=== PATIENT | male | born 1990 | race Caucasian/White ===

== ENCOUNTER 2016-12-09 15:31 | Emergency (ER) | payer BC ==
[~2016-12-09] VITALS: Ht 170.2 cm; Wt 65.0 kg
[2016-12-09 15:40] VITALS: TEMP 37.2; Ht 170.2 cm; Wt 65.0 kg
[2016-12-09] MEDS ORDERED: ESCI1TAB6 PO (16:01)
[2016-12-09] MEDS ORDERED: LORA10TA5 PO (16:01)
[2016-12-09] MEDS ORDERED: OPTIRAY 320 IV PRN (16:15)
[2016-12-09 16:24] LABS: BASO % 0.3 %; BASO ABS # 0.02 K/uL (0-0.2); COMPLETE YES; EOS % 0.7 %; HEMATOCRIT 42.8 % (42-52); IG% 0.3 %; LYMPH ABS # 1.41 K/uL (1.2-3.4); MEAN CELL VOLUME 82.5 fL (80-100); MEAN CORPUSCULAR HEMOGLOBIN 30.4 pg (25-34); MEAN CORPUSCULAR HGB CONC 36.9 g/dl (32-36); MEAN PLATELET VOLUME 8.7 fL (7.4-10.4); MONO % 8.4 %; NEUT % 70.3 %; PLATELET COUNT 266 K/uL (130-400); RED BLOOD COUNT 5.19 M/uL (4.7-6.1); WHITE BLOOD COUNT 7.06 K/uL (4.8-10.8)
[2016-12-09 16:32] LABS: INR 1.1 (0.9-1.1); PARTIAL THROMBOPLASTIN RATIO 1.3; PROTHROMBIN TIME (PATIENT) 11.8 SECONDS (9.0-12.0)
[2016-12-09 17:09] LABS: ALKALINE PHOSPHATASE 57 U/L (45-117); ALT/SGPT 24 U/L (12-78); AST/SGOT 18 U/L (15-37); BLOOD UREA NITROGEN 7 mg/dl (7-18); BUN/CREATININE RATIO 7.2 (10-20); CALCIUM 9.3 mg/dl (8.5-10.1); CARBON DIOXIDE 29 mmol/L (21-32); CHLORIDE 100 mmol/L (98-107); GLUCOSE 77 mg/dl (70-99); POTASSIUM 3.8 mmol/L (3.5-5.1); SODIUM 139 mmol/L (136-145)
[2016-12-09 17:22] LABS: LYME DISEASE AB IGG NEG (NEG); LYME DISEASE AB IGM NEG (NEG)
--- NOTE | 2016-12-09 17:28 | DIAGNOSTIC IMAGING REPORT ---
CHEST 2 VIEWS ROUTINE HISTORY: Cough. COMPARISON: None. FINDINGS: The lungs are clear. Cardiac silhouette is normal in size. No pleural effusions. No pneumothorax. IMPRESSION: No acute process. Electronically signed by: Memo Goodman M.D. 12/09/2016 5:26 PM Dictated Date/Time: 12/09/2016 5:24 PM
[2016-12-09 17:42] LABS: URINE APPEARANCE CLEAR (CLEAR); URINE BILIRUBIN NEG (NEG); URINE COLOR YELLOW; URINE NITRITE NEG (NEG); URINE PH 5.5 (4.5-7.5); URINE SPECIFIC GRAVITY 1.008 (1.000-1.030); UROBILINOGEN NEG (NEG)
[2016-12-09 17:43] LABS: MANUAL MICROSCOPIC REQUIRED? NO; REVIEW REQ? NO
--- NOTE | 2016-12-09 18:54 | DIAGNOSTIC IMAGING REPORT ---
ABDOMEN AND PELVIS CT WITH IV AND ORAL CONTRAST CT DOSE: 256.47 mGy.cm HISTORY: left sided abdominal pain eval for colitis/divertic TECHNIQUE: Multiaxial CT images of the abdomen and pelvis were performed following the use of intravenous and oral contrast. COMPARISON STUDY: None. FINDINGS: A 7 mm groundglass nodule within the base of the left lower lobe. The right lung base is clear. No pneumoperitoneum. No pneumatosis. Bilateral L5 spondylolysis. The liver, gallbladder, pancreas, spleen, adrenal glands, and kidneys are unremarkable. No retroperitoneal lymphadenopathy. Moderate bladder wall thickening. Questionable thickening of the rectum. This may be due to underdistention. No perirectal fat stranding. Normal appendix. No evidence for bowel obstruction. IMPRESSION: 1. Questionable thickening of the rectum which could be due to underdistention. No perirectal fat stranding. A low-grade proctitis could also have a similar appearance but is considered less likely. 2. Moderate thickening of the bladder wall may be due to underdistention. Recommend correlation with urinalysis. 3. Normal appendix. 4. No evidence for bowel obstruction. 5. A 7 mm groundglass nodule within the left lower lobe. Given the patient's age this favors a small focus of inflammatory/infectious change. Electronically signed by: Memo Goodman M.D. 12/09/2016 6:52 PM Dictated Date/Time: 12/09/2016 6:44 PM
[2016-12-09] MEDS ORDERED: METR-163 PO (19:28)
[2016-12-09] MEDS ORDERED: CIPR-255 PO (19:28)
[2016-12-09] MEDS ORDERED: CIPROFLOXACIN 500 MG TAB PO STA (19:29)
[2016-12-09] MEDS ORDERED: METRONIDAZOLE 250 MG TAB PO STA (19:29)
[2016-12-09 19:49] VITALS: BP 152/69; PULSE 101; O2SAT 97
--- NOTE | 2016-12-09 19:54 | EMERGENCY ROOM VISIT NOTE ---
History Report prepared by Javier: Izaiah Hinkle Under the Supervision of: Dr. Easton Mejia M.D. First contact with patient: 15:44 Chief Complaint: FLU LIKE SX Stated Complaint: COUGH,RUNNY NOSE,HEADACHE,BODY ACHES,DIARRHEA History of Present Illness The patient is a 26 year old male who presents to the Emergency Room with complaints of persistent coughing and body aches. The patient also notes sneezing, runny nose, a sore throat, and persistent diarrhea. He has had bouts of diarrhea intermittently, which have become more persistent as of lately. He has not noticed any blood in the stool but noticed that there was some mucus. He has been experiencing some "cramping" lower abdominal pain. He denies any fevers, recent travels, or recent antibiotic use. He takes Lexapro daily. He also notes that his right ear feels stuffed. Source of History: patient Position: other (Respiratory) Quality: other (Cough) Timing: other (Persistent) Associated Symptoms: + diarrhea, + sorethroat, No fevers Note: Bodily Aches Review of Systems See HPI for pertinent positives & negatives. A total of 10 systems reviewed and were otherwise negative. Past Medical & Surgical Surgical Problems: (1) Hx of myringotomy Family History Hypertension Social History Smoking Status: Never Smoker Drug Use: none Marital Status: single Housing Status: lives alone Occupation Status: employed Current/Historical Medications Scheduled Ciprofloxacin Hcl (Cipro), 500 MG PO BID Escitalopram Oxalate (Lexapro), Unknown Dose PO DAILY Loratadine (Claritin), 10 MG PO DAILY Metronidazole (Flagyl), 500 MG PO TID Allergies Coded Allergies: Cefaclor (Unverified Adverse Reaction, Unknown, UNKNOWN, 12/09/16) MOM IS ALLERGIC, TOLD HIM TO STAY AWAY FROM THIS MEDICATION Doxycycline (Unverified Adverse Reaction, Unknown, UNKNOWN, 12/09/16) MOM IS ALLERGIC, TOLD HIM TO STAY AWAY FROM THIS MEDICATION Penicillins (Unverified Adverse Reaction, Unknown, UNKNOWN, 12/09/16) MOM IS ALLERGIC, TOLD HIM TO STAY AWAY FROM THIS MEDICATION Physical Exam Vital Signs Date Time Temp Pulse Resp B/P Pulse Ox O2 Delivery O2 Flow Rate FiO2 12/09/16 18:00 95 17 137/88 97 Room Air 12/09/16 17:28 93 4/9/17 17:02 92 18 135/79 99 Room Air 12/09/16 15:40 37.2 104 16 124/73 96 Room Air Physical Exam Constitutional: Vital signs reviewed. Eyes: Pupils are equal round reactive to light. Conjunctiva are noninjected. ENT: Pharynx is clear without erythema or exudate. Mucous membranes are moist. Neck supple without meningeal signs. Ears are impacted by cerumen bilaterally. Respiratory: Clear to auscultation bilaterally. Breath sounds are equal bilaterally. Cardiovascular: Regular rate and rhythm. No rubs or gallops. GI: Soft, nondistended, with tenderness to the left mid-abdomen, no guarding. Bowel sounds are present. Musculoskeletal: No peripheral edema. No lower extremity tenderness. Integumentary: No cyanosis. Neurological: The patient is awake and alert. No focal deficits. Psychiatric: Normal affect. Medical Decision & Procedures ER Provider Diagnostic Interpretation: Radiology results as stated below per my review and the radiologist's interpretation: ABDOMEN AND PELVIS CT WITH IV AND ORAL CONTRAST CT DOSE: 256.47 mGy.cm HISTORY: left sided abdominal pain eval for colitis/divertic TECHNIQUE: Multiaxial CT images of the abdomen and pelvis were performed following the use of intravenous and oral contrast. COMPARISON STUDY: None. FINDINGS: A 7 mm groundglass nodule within the base of the left lower lobe. The right lung base is clear. No pneumoperitoneum. No pneumatosis. Bilateral L5 spondylolysis. The liver, gallbladder, pancreas, spleen, adrenal glands, and kidneys are unremarkable. No retroperitoneal lymphadenopathy. Moderate bladder wall thickening. Questionable thickening of the rectum. This may be due to underdistention. No perirectal fat stranding. Normal appendix. No evidence for bowel obstruction. IMPRESSION: 1. Questionable thickening of the rectum which could be due to underdistention. No perirectal fat stranding. A low-grade proctitis could also have a similar appearance but is considered less likely. 2. Moderate thickening of the bladder wall may be due to underdistention. Recommend correlation with urinalysis. 3. Normal appendix. 4. No evidence for bowel obstruction. 5. A 7 mm groundglass nodule within the left lower lobe. Given the patient's age this favors a small focus of inflammatory/infectious change. Electronically signed by: Memo Goodman M.D. 12/09/2016 6:52 PM Dictated Date/Time: 12/09/2016 6:44 PM CHEST 2 VIEWS ROUTINE HISTORY: Cough. COMPARISON: None. FINDINGS: The lungs are clear. Cardiac silhouette is normal in size. No pleural effusions. No pneumothorax. IMPRESSION: No acute process. Electronically signed by: Memo Goodman M.D. 12/09/2016 5:26 PM Dictated Date/Time: 12/09/2016 5:24 PM Laboratory Results 12/09/16 16:13 Red Blood Count 5.19, Mean Corpuscular Volume 82.5, Mean Corpuscular Hemoglobin 30.4, Mean Corpuscular Hemoglobin Concent 36.9, Mean Platelet Volume 8.7, Neutrophils (%) (Auto) 70.3, Lymphocytes (%) (Auto) 20.0, Monocytes (%) (Auto) 8.4, Eosinophils (%) (Auto) 0.7, Basophils (%) (Auto) 0.3, Neutrophils # (Auto) 4.97, Lymphocytes # (Auto) 1.41, Monocytes # (Auto) 0.59, Eosinophils # (Auto) 0.05, Basophils # (Auto) 0.02 12/09/16 16:13 Test 12/09/16 16:13 12/09/16 16:40 12/09/16 17:10 White Blood Count 7.06 K/uL (4.8-10.8) Red Blood Count 5.19 M/uL (4.7-6.1) Hemoglobin 15.8 g/dL (14.0-18.0) Hematocrit 42.8 % (42-52) Mean Corpuscular Volume 82.5 fL (80-100) Mean Corpuscular Hemoglobin 30.4 pg (25-34) Mean Corpuscular Hemoglobin Concent 36.9 g/dl (32-36) Platelet Count 266 K/uL (130-400) Mean Platelet Volume 8.7 fL (7.4-10.4) Neutrophils (%) (Auto) 70.3 % Lymphocytes (%) (Auto) 20.0 % Monocytes (%) (Auto) 8.4 % Eosinophils (%) (Auto) 0.7 % Basophils (%) (Auto) 0.3 % Neutrophils # (Auto) 4.97 K/uL (1.4-6.5) Lymphocytes # (Auto) 1.41 K/uL (1.2-3.4) Monocytes # (Auto) 0.59 K/uL (0.11-0.59) Eosinophils # (Auto) 0.05 K/uL (0-0.5) Basophils # (Auto) 0.02 K/uL (0-0.2) RDW Standard Deviation 35.1 fL (36.4-46.3) RDW Coefficient of Variation 11.6 % (11.5-14.5) Immature Granulocyte % (Auto) 0.3 % Immature Granulocyte # (Auto) 0.02 K/uL (0.00-0.02) Prothrombin Time 11.8 SECONDS (9.0-12.0) Prothromb Time International Ratio 1.1 (0.9-1.1) Activated Partial Thromboplast Time 32.9 SECONDS (21.0-31.0) Partial Thromboplastin Ratio 1.3 Anion Gap 10.0 mmol/L (3-11) Est Creatinine Clear Calc Drug Dose 104.7 ml/min Estimated GFR () 121.6 Estimated GFR (Non- 104.9 BUN/Creatinine Ratio 7.2 (10-20) Calcium Level 9.3 mg/dl (8.5-10.1) Total Bilirubin 0.6 mg/dl (0.2-1) Direct Bilirubin mg/dl (0-0.2) Aspartate Amino Transf (AST/SGOT) 18 U/L (15-37) Alanine Aminotransferase (ALT/SGPT) 24 U/L (12-78) Alkaline Phosphatase 57 U/L (45-117) Total Protein 8.6 gm/dl (6.4-8.2) Albumin 4.4 gm/dl (3.4-5.0) Lipase 65 U/L (73-393) Lyme Disease IgG Antibody NEG (NEG) Lyme Disease IgM Antibody NEG (NEG) Monoscreen NEG (NEG) Influenza Type A Antigen Neg for Influ A (NEG) Influenza Type B Antigen Neg for Influ B (NEG) Urine Color YELLOW Urine Appearance CLEAR (CLEAR) Urine pH 5.5 (4.5-7.5) Urine Specific [place] 1.008 (1.000-1.030) Urine Protein NEG (NEG) Urine Glucose (UA) NEG (NEG) Urine Ketones 1+ (NEG) Urine Occult Blood NEG (NEG) Urine Nitrite NEG (NEG) Urine Bilirubin NEG (NEG) Urine Urobilinogen NEG (NEG) Urine Leukocyte Esterase NEG (NEG) Laboratory results as reviewed by me. Medications Administered Medications (Trade) Dose Ordered Sig/Ana Route Start Time Stop Time Status Last Admin Dose Admin Metronidazole (Flagyl Tab) 500 mg NOW STAT PO 12/09/16 19:29 12/09/16 19:30 DC 12/09/16 19:39 500 MG Ciprofloxacin (Cipro Tab) 500 mg NOW STAT PO 12/09/16 19:29 12/09/16 19:30 DC 12/09/16 19:39 500 MG ECG Indication: abdominal pain Rate (beats per minute): 77 Rhythm: normal sinus Findings: no acute ischemic change, no ectopy ED Course 154: The patient was evaluated in room C1. A complete history and physical exam was performed. 1729: I checked on the patient at this time and discussed results of the visit so far. He will try to provide a stool sample. 1925: Upon reevaluation, the patient appeared to have improvement of his symptoms. I discussed tonight's findings with him. He verbalized agreement of the treatment plan. The patient was discharged home. 1928: Ordered Ciprofloxacin 500 mg PO, Flagyl 500 mg PO. Medical Decision This is a 26-year-old male who presents with flulike symptoms, abdominal pain and diarrhea. Differential diagnosis includes influenza, viral syndrome, pneumonia, colitis, inflammatory bowel disease, enteritis. I did perform a limited focused review of portions of the patient's old chart on the electronic medical record. The patient has had no recent pertinent visits to this hospital. I did evaluate the patient as noted above. IV access was established. I did order and personally review the patient's 12-lead EKG and chest x-ray as described above. I did order and review the patient's blood work as noted in the electronic medical record. His white blood cell count is not elevated. Monospot is negative. Lyme test is negative. Rapid flu test is negative. Urinalysis is unremarkable. Because of patient's diarrhea and abdominal pain and tenderness, I did order a CT of the abdomen and pelvis. I did review the images myself as well as the radiology report as described above. There is a question of proctitis on CAT scan. I did discuss the test results with the patient. He was able to give us a stool sample which is pending for culture. C. difficile antigen testing is negative. Because of his symptoms I did recommend he be treated with antibiotics. He was given a prescription for Cipro and Flagyl. He was advised follow with Dr. cheema of gastroenterology and [facility]. 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 He was discharged in good condition. Impression Primary Impression: Proctitis Additional Impressions: Influenza-like illness Cerumen impaction Scribe Attestation The scribe's documentation has been prepared under my direct and personally reviewed by me in its entirety. I confirm that the note above accurately reflects all work, treatment, procedures, and medical decision making performed by me. Departure Information Dispostion Home / Self-Care Prescriptions Metronidazole (Flagyl) 500 Mg Tab 500 MG PO TID for 10 Days, #30 TAB Prov: Easton Mejia M.D. 12/09/16 Ciprofloxacin Hcl (CIPRO) 500 Mg Tab 500 MG PO BID, #20 TAB Prov: Easton Mejia M.D. 12/09/16 Referrals No Doctor, Assigned (PCP) Forms HOME CARE DOCUMENTATION FORM, IMPORTANT VISIT INFORMATION Patient Instructions My [facility] Problem Qualifiers Additional Impressions: Cerumen impaction Laterality: bilateral Qualified Codes: H61.23 - Impacted cerumen, bilateral
== END 2016-12-09 19:50 | disposition home or self-care (01) ==
LOC: EDBD 15:32 → C.EDB 15:32 → C.EDC 19:50
DX: K62.89 Other specified diseases of anus and rectum (principal); R69 Illness, unspecified; H61.23 Impacted cerumen, bilateral; Z82.49 Family history of ischemic heart disease and other diseases of the circulatory system